=== PATIENT | male | born 1965 | race Caucasian/White ===

== ENCOUNTER 2019-03-22 10:53 | Emergency (ER) | payer MEDICAID, OTHER ==
[~2019-03-22] VITALS: Ht 187 cm; Wt 118.0 kg
[2019-03-22] MEDS ORDERED: TETANUS,DIPTH,PERTUSS P/F (BOOSTRIX) 0.5 ML VIAL IM ONE (11:30)
--- NOTE | 2019-03-22 11:38 | Diagnostic Imaging Report ---
INDICATION: Hit in nose with a cattle gate. TIME OF EXAM: 11:08 AM Multiple views of nasal bones were obtained. There is minimally displaced fracture involving the bilateral nasal bones. Right nasal bone does show slightly more inferior displacement. No other abnormalities are seen. IMPRESSION: Nasal bone fractures. Dictated by: Dictated on workstation # [id number]
--- NOTE | 2019-03-22 11:42 | ED EENT ---
History of Present Illness General Chief Complaint: Laceration Stated Complaint: NASAL INJ Nursing Triage Note: PT WAS HIT IN THE NOSE WITH A CATTLE GATE AFTER A COW KICKED THE GATE. NO LOSS OF CONSCIOUSNESS. PT HAS A U SHAPED LACERATION ON THE BRIDGE OF HIS NOSE. WELL APPROXIMATED AND BLEEDING IS CONTROLLED. PT IS NOT UP TO DATE ON HIS TETANUS. Source: patient, RN notes reviewed Exam Limitations: no limitations History of Present Illness Date Seen by Provider: Mar 22, 2019 Time Seen by Provider: 11:15 Initial Comments Patient was hit on the nose with a cattle gate after a cow kicked the gate. Patient does not have any loss of consciousness. Patient has a U-shaped laceration on the bridge of his nose and it is well approximated and bleeding is controlled and he is not up-to-date on tetanus. He does have mild nosebleed from the left nostril which was stopped by the time he came to the emergency room. He denies having any headache and denies having any loss of consciousness. He denies having any neck pain. He denies having any tenderness on the orbits, maxilla or on the forehead. He denies any other injuries. Location Injury Occurred: nasal bridge Timing/Duration: abrupt Severity: mild Prearrival Treatment: no prearrival treatment Associated Symptoms: facial pain/swelling Allergies and Home Medications Allergies Coded Allergies: No Known Drug Allergies (Unverified , 03/22/19) Review of Systems Review of Systems Constitutional: see HPI Eyes: No Symptoms Reported Ears: No Symptoms Reported Nose: epistaxis, pain (on nasal bridge) Mouth: no symptoms reported Throat: no symptoms reported Respiratory: no symptoms reported Cardiovascular: no symptoms reported Musculoskeletal: no symptoms reported Skin: other (lacaeration on nasal bridge) Neurological: Denies Headache, Denies Paresthesia, Denies Tingling Past Dgfnivm-Ayeyjb-Ibqjdm Hx Patient Social History Alcohol Use: Occasionally Uses Recreational Drug Use: No Smoking Status: Never a Smoker 2nd Hand Smoke Exposure: No Recent Foreign Travel: No Contact w/Someone Who Travel: No Recent Infectious Disease Expo: No Recent Hopitalizations: No Physical Abuse: No Sexual Abuse: No Mistreated: No Fear: No Seasonal Allergies Seasonal Allergies: No Past Medical History Surgeries: Yes (HERNIA SURGERY) Respiratory: No Cardiac: No Neurological: No Genitourinary: No Gastrointestinal: No Musculoskeletal: No Endocrine: No HEENT: No Cancer: No Psychosocial: No Integumentary: No Blood Disorders: No Physical Exam Vital Signs Vital Signs - First Documented 03/22/19 11:07 Temp 37.1 Pulse 104 Resp 18 B/P (MAP) 169/98 (121) O2 Delivery Room Air Height, Weight, BMI Height: '" Weight: lbs. oz. kg; 33.00 BMI Method: General Appearance: WD/WN, mild distress Eyes: right eye normal inspection, right eye PERRL, right eye EOMI; bilateral eye normal inspection, bilateral eye PERRL, bilateral eye EOMI Ears: bilateral ear auricle normal, bilateral ear canal normal, bilateral ear TM normal Nose: normal inspection, dried blood, other (laceration and tenderness on nasal bridge) Mouth/Throat: normal mouth inspection, pharynx normal; No dental tenderness Neck: non-tender, full range of motion, supple Cardiovascular: normal peripheral pulses, regular rate, rhythm Respiratory: chest non-tender, lungs clear, normal breath sounds, no respiratory distress Gastrointestinal: normal bowel sounds, non tender, soft, no organomegaly Neurologic/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, no motor/sensory deficits, alert, normal mood/affect, oriented x 3 Skin: normal color, warm/dry Procedures/Interventions Wound's Depth, Shape: superficial, flap Wound Explored: clean Other Closure Supply: Steri Strip 1/2", Wound Adhesive Progress/Results/Core Measures Results/Orders My Orders Orders - SUZIE MASON MD Nasal Bones (03/22/19 11:21) Dipht,Pertuss(Acell),Tet Adult (Boostrix (03/22/19 11:30) Medications Given in ED Current Medications Medications Dose Ordered Sig/Mark Route Start Time Stop Time Status Last Admin Dose Admin Diphtheria/ Tetanus/Acell Pertussis 0.5 ml ONCE ONCE IM 03/22/19 11:30 03/22/19 11:31 DC 03/22/19 11:35 0.5 ML Vital Signs/I&O 03/22/19 11:07 Temp 37.1 Pulse 104 Resp 18 B/P (MAP) 169/98 (121) O2 Delivery Room Air Blood Pressure Mean: 121 Diagnostic Imaging Diagonstic Imaging: Xray (nasal bone fracture) Departure Impression Primary Impression: Open nasal fracture Qualified Codes: S02.2XXB - Fracture of nasal bones, initial encounter for open fracture Disposition: HOME, SELF-CARE Condition: Stable Departure-Patient Inst. Decision time for Depature: 11:56 Referrals: HIWOT MARTINEZ APRN Patient Instructions: Nose Fracture, Laceration Repair With Glue (DC) Add. Discharge Instructions: Follow-up with the ENT in the 5-7 days. Call office tomorrow for appointment. Ice to the area of pain and swelling. Can take Tylenol 1 g he will every 6 hours when necessary pain. Take antibiotics as prescribed. Return to the emergency room if symptoms worsens or has any concern. All discharge instructions reviewed with patient and family. Voiced understanding. Scripts Cephalexin (Keflex) 500 Mg Capsule 500 MG PO TID for 7 Days, CAP Prov: SUZIE MASON MD 03/22/19 SUZIE MASON MD Mar 22, 2019 11:42
[2019-03-22] MEDS ORDERED: CEPH-507 PO (12:00)
[2019-03-22 12:18] VITALS: BP 133/80
== END 2019-03-22 12:13 | disposition home or self-care (01) ==
LOC: EDUNIT# 10:53 → ER FS 10:55
DX: S02.2XXB Fracture of nasal bones, initial encounter for open fracture (principal); Z23 Encounter for immunization; W22.8XXA Striking against or struck by other objects, initial encounter
CPT/HCPCS: 12011; 70160; 90471; 90715

== ENCOUNTER 2021-09-12 13:16 | Observation (INO) | payer MEDICAID ==
[~2021-09-12] VITALS: Ht 188 cm; Wt 119.5 kg
[~2021-09-12 13:16] MED LIST: CEPH-507 PO
[2021-09-12] MEDS ORDERED: diphenhydrAMINE 50 MG/ML INJ (BENADRYL) IVP PRN (14:30)
[2021-09-12] MEDS ORDERED: ANTACID SUSP 30 ML UDC (MYLANTA) PO PRN (14:30)
[2021-09-12] MEDS ORDERED: ONDANSETRON 4 MG/2 ML (SDV) Z0FRAN IV PRN (14:30)
[2021-09-12] MEDS ORDERED: polyethylene glycoL POWDER 17 GM (MIRALAX) PACK PO PRN (14:30)
[2021-09-12] MEDS ORDERED: ONDANSETRON 4 MG (ZOFRAN) ORAL DISSOLVE TAB PO PRN (14:30)
[2021-09-12] MEDS ORDERED: LORazepam 0.5 MG (ATIVAN) TABLET PO PRN (14:30)
[2021-09-12] MEDS ORDERED: MELATONIN 3 MG TABLET PO PRN (14:30)
[2021-09-12] MEDS ORDERED: BISACODYL 10 MG SUPP (DULCOLAX) PR PRN (14:30)
[2021-09-12] MEDS ORDERED: ACETAMINOPHEN 325 MG TABLET PO PRN (14:30)
[2021-09-12] MEDS ORDERED: morphine INJ 4 MG/ML 1 ML (VIAL/SYRINGE) IV PRN (14:30)
[2021-09-12] MEDS ORDERED: diphenhydrAMINE 25 MG TAB (BENADRYL) PO PRN (14:30)
[2021-09-12 15:02] LABS: BASOPHILS # (AUTO) 0.1 10^3/uL (0.0-0.1); BASOPHILS % (AUTO) 1 % (0-10); EOSINOPHILS # (AUTO) 0.4 10^3/uL (0.0-0.3); EOSINOPHILS % (AUTO) 5 % (0-10); HEMATOCRIT 47 % (40-54); HEMOGLOBIN 16.1 g/dL (13.3-17.7); LYMPHOCYTES # (AUTO) 1.1 10^3/uL (1.0-4.0); LYMPHOCYTES % (AUTO) 15 % (12-44); MEAN CORPUSCULAR HEMOGLOBIN 34 pg (25-34); MEAN CORPUSCULAR HGB CONC 34 g/dL (32-36); MEAN CORPUSCULAR VOLUME 100 fL (80-99); MEAN PLATELET VOLUME 9.2 fL (9.0-12.2); MONOCYTES # (AUTO) 0.7 10^3/uL (0.0-1.0); MONOCYTES % (AUTO) 10 % (0-12); NEUTROPHILS # (AUTO) 4.8 10^3/uL (1.8-7.8); NEUTROPHILS % (AUTO) 69 % (42-75); PLATELET COUNT 183 10^3/uL (130-400)
[2021-09-12 15:08] LABS: ALBUMIN 3.9 GM/DL (3.2-4.5); POTASSIUM 3.8 MMOL/L (3.6-5.0)
[2021-09-12 15:09] LABS: CALCIUM 8.8 MG/DL (8.5-10.1)
[2021-09-12 15:11] LABS: PROTHROMBIN TIME PATIENT 13.6 SEC (12.2-14.7); TOTAL PROTEIN 6.8 GM/DL (6.4-8.2)
[2021-09-12 15:14] LABS: CREATININE SERUM 0.99 MG/DL (0.60-1.30)
[2021-09-12 15:27] VITALS: BP 130/82
[2021-09-12 16:00] VITALS: BP 130/82
[2021-09-12] MEDS: HEParin DRIP 25000 UNIT/500ML 500 ML IV SCH (16:04)
[2021-09-12] MEDS: HEParin 1000 UNIT/ML (10ML VIAL) FOR BOLUS IV SCH ×2 (16:05→20:36)
[2021-09-12] MEDS ORDERED: RT-ALBUTEROL SULF 2.5 MG/3 ML PRE-MIX VIAL INH PRN (16:15)
--- NOTE | 2021-09-12 16:53 | History & Physical-Hospitalist ---
History of Present Illness HPI/Chief Complaint CC: Left leg DVT with extensive clot burden HPI: This is a 56yoWM w/known FOSTER non-compliant with CPAP who presented to his PCP in [place] and was found to have a left leg DVT with extensive clot burden. Due to the clot burden it was decided to admit on heparin drip for 36 hours then transition to OAC. Left leg has pain but he is doing better since starting heparin drip. No h/o DVT's and no FH of DVT's. No recent travel or any other common causes. Source: patient, family Exam Limitations: no limitations Date Seen 09/12/21 Time Seen by a Provider: 16:50 Attending Physician No,Local Physician PCP Admitting Physician: Aida Knox DO Attending Physician: Aida Knox DO Referring Physician Date of Admission Sep 12, 2021 at 13:49 Home Medications & Allergies Home Medications Reviewed patient Home Medication Reconciliation performed by pharmacy medication reconciliations topography technician and/or nursing. Patients Allergies have been reviewed. Allergies Allergies Coded Allergies No Known Drug Allergies (Hbvzdjusym83/23/19) Past Wflsbjz-Kghfko-Cbvjyd Hx Patient Social History Marrital Status: single Employed/Student: employed ([employer]) Tobacco Use?: No Smoking Status: Never a Smoker Use of E-Cig and/or Vaping dev: No Substance use?: No Alcohol Use?: Yes Alcohol type: Beer Alcohol Frequency: Once in a while Pt feels they are or have been: No Immunizations Up To Date First/Initial COVID19 Vaccinat: Second COVID19 Vaccination Fabián: Tetanus Booster (TDap): More Than 5 Years Hepatitis A: No Hepatitis B: No Seasonal Allergies Seasonal Allergies: No Current Status Advance Directives: No Communicates: Verbally Primary Language: [place]alander Preferred Spoken Language: [place]alander Is interpretation needed?: No Implanted or Applied Medical D: None Past Medical History Blood Disorders: No Review of Systems Constitutional: see HPI EENTM: no symptoms reported Respiratory: no symptoms reported Cardiovascular: no symptoms reported Gastrointestinal: no symptoms reported Genitourinary: no symptoms reported Musculoskeletal: muscle pain Skin: no symptoms reported Psychiatric/Neurological: No Symptoms Reported All Other Systems Reviewed Negative Unless Noted: Yes Physical Exam Physical Exam Vital Signs Vital Signs - First Documented 09/12/21 09/12/21 09/12/21 13:55 15:27 16:00 Temp 36.9 Pulse 92 Resp 16 B/P (MAP) 130/82 (98) Pulse Ox 98 O2 Delivery Room Air FiO2 21 Capillary Refill : Height, Weight, BMI Height: '" Weight: lbs. oz. kg; 33.81 BMI Method: General Appearance: No Apparent Distress, Chronically ill, Obese Eyes: Right Eye Normal Inspection, Right Eye PERRL HEENT: PERRL/EOMI, Normal ENT Inspection, Pharynx Normal, Moist Mucous Membranes Neck: Full Range of Motion, Normal Inspection, Non Tender Respiratory: Chest Non Tender, Lungs Clear, Normal Breath Sounds, No Accessory Muscle Use, No Respiratory Distress Cardiovascular: Regular Rate, Rhythm, No Edema, No Gallop, No JVD, No Murmur, Normal Peripheral Pulses Gastrointestinal: Normal Bowel Sounds, No Organomegaly, No Pulsatile Mass, Non Tender, Soft Back: Normal Inspection, No CVA Tenderness, No Vertebral Tenderness Extremity: Normal Capillary Refill, Normal Inspection, Normal Range of Motion, Non Tender, No Calf Tenderness, No Pedal Edema Neurologic/Psychiatric: Alert, Oriented x3, No Motor/Sensory Deficits, Normal Mood/Affect Skin: Normal Color, Warm/Dry Lymphatic: No Adenopathy Results Results/Procedures Labs Laboratory Tests 09/12/21 14:55 Patient resulted labs reviewed. Assessment/Plan Admission Diagnosis Assessment: Left leg DVT unprovoked with extensive clot burden FOSTER non-compliant with CPAP ETOH user Plan: Hep gtts Monitor labs Pain control Admission Status: Observation Diagnosis/Problems Diagnosis/Problems (1) Left leg DVT AIDA KNOX DO Sep 12, 2021 16:53
[2021-09-12] MEDS: DOCUSATE SODIUM 100 MG (COLACE) CAP PO SCH (19:24)
[2021-09-12 19:33] VITALS: BP 125/79
[2021-09-12 23:35] VITALS: BP 119/70
[2021-09-13 04:35] VITALS: BP 110/68
--- NOTE | 2021-09-13 05:43 | Progress Note - Hospitalist ---
Subjective HPI/CC On Admission Date Seen by Provider: Sep 13, 2021 Time Seen by Provider: 11:00 CC: Left leg DVT with extensive clot burden HPI: This is a 56yoWM w/known FOSTER non-compliant with CPAP who presented to his PCP in [place] and was found to have a left leg DVT with extensive clot burden. Due to the clot burden it was decided to admit on heparin drip for 36 hours then transition to OAC. Left leg has pain but he is doing better since starting heparin drip. No h/o DVT's and no FH of DVT's. No recent travel or any other common causes. Subjective/Events-last exam Pt is doing a lot better Left leg much smaller now Heparin drip maintained Will convert over to Xarelto Social work will provide a coupon and discharge tomorrow Multivitamin will be given due to macrocytosis due to alcoholism No alcohol withdrawal Review of Systems General: Fatigue, Malaise Musculoskeletal: leg pain Objective Exam Vital Signs Vital Signs Date Time Temp Pulse Resp B/P (MAP) Pulse Ox O2 Delivery O2 Flow Rate FiO2 09/14/21 04:00 36.9 71 16 118/71 (87) 95 Room Air 09/12/21 16:00 21 Capillary Refill : General Appearance: No Apparent Distress, WD/WN, Chronically ill, Obese Respiratory: Lungs Clear, Normal Breath Sounds Cardiovascular: Regular Rate, Rhythm Extremity: Pedal Edema, Swelling Neurologic/Psychiatric: Alert, Oriented x3, No Motor/Sensory Deficits, Normal Mood/Affect Results/Procedures Lab Patient resulted labs reviewed. Assessment/Plan Assessment and Plan Assess & Plan/Chief Complaint Assessment: Left leg DVT unprovoked with extensive clot burden FOSTER non-compliant with CPAP ETOH user Plan: Hep gtts Monitor labs Pain control 09/13: Hep gtts Xarelto tomorrow Diagnosis/Problems Diagnosis/Problems (1) Left leg DVT EDER RAJPUT DO Sep 13, 2021 05:43
[2021-09-13 05:57] LABS: BASOPHILS # (AUTO) 0.1 10^3/uL (0.0-0.1); BASOPHILS % (AUTO) 1 % (0-10); EOSINOPHILS # (AUTO) 0.5 10^3/uL (0.0-0.3); EOSINOPHILS % (AUTO) 7 % (0-10); HEMATOCRIT 47 % (40-54); HEMOGLOBIN 16.2 g/dL (13.3-17.7); LYMPHOCYTES # (AUTO) 1.4 10^3/uL (1.0-4.0); LYMPHOCYTES % (AUTO) 21 % (12-44); MEAN CORPUSCULAR HEMOGLOBIN 35 pg (25-34); MEAN CORPUSCULAR HGB CONC 35 g/dL (32-36); MEAN CORPUSCULAR VOLUME 100 fL (80-99); MEAN PLATELET VOLUME 8.8 fL (9.0-12.2); MONOCYTES # (AUTO) 0.6 10^3/uL (0.0-1.0); MONOCYTES % (AUTO) 8 % (0-12); NEUTROPHILS # (AUTO) 4.2 10^3/uL (1.8-7.8); NEUTROPHILS % (AUTO) 63 % (42-75); PLATELET COUNT 169 10^3/uL (130-400); WHITE BLOOD COUNT 6.8 10^3/uL (4.3-11.0)
[2021-09-13 06:08] LABS: ALBUMIN 3.7 GM/DL (3.2-4.5)
[2021-09-13 06:09] LABS: POTASSIUM 3.8 MMOL/L (3.6-5.0)
[2021-09-13 06:10] LABS: CALCIUM 8.5 MG/DL (8.5-10.1)
[2021-09-13 06:11] LABS: TOTAL PROTEIN 6.4 GM/DL (6.4-8.2)
[2021-09-13 06:15] LABS: CREATININE SERUM 0.96 MG/DL (0.60-1.30)
[2021-09-13] MEDS: HEParin DRIP 25000 UNIT/500ML 500 ML IV SCH ×2 (06:34→19:36)
[2021-09-13] MEDS: DOCUSATE SODIUM 100 MG (COLACE) CAP PO SCH ×2 (07:45→21:54)
[2021-09-13 07:52] VITALS: BP 117/71
[2021-09-13] MEDS: HEParin 1000 UNIT/ML (10ML VIAL) FOR BOLUS IV SCH ×2 (08:13→19:28)
[2021-09-13 11:24] VITALS: BP 138/79
[2021-09-13] MEDS: MULTIVIT W/MINERALS TAB (THERAGRAN M) PO SCH (13:07)
[2021-09-13 15:34] VITALS: BP 113/69
[2021-09-13 19:52] VITALS: BP 142/81
[2021-09-13 23:20] VITALS: BP_SYST 142; BP_SYST 98; BP_DIAS 57; BP_DIAS 81
[2021-09-14 04:00] VITALS: BP 118/71
[2021-09-14] MEDS: MULTIVIT W/MINERALS TAB (THERAGRAN M) PO SCH (05:51)
[2021-09-14 06:16] LABS: ALBUMIN 3.8 GM/DL (3.2-4.5); POTASSIUM 4.1 MMOL/L (3.6-5.0)
[2021-09-14 06:18] LABS: CALCIUM 8.8 MG/DL (8.5-10.1)
[2021-09-14 06:19] LABS: TOTAL PROTEIN 6.8 GM/DL (6.4-8.2)
[2021-09-14 06:21] LABS: BILIRUBIN,TOTAL 0.9 MG/DL (0.1-1.0)
[2021-09-14 06:23] LABS: CREATININE SERUM 0.94 MG/DL (0.60-1.30)
[2021-09-14] MEDS: HEParin DRIP 25000 UNIT/500ML 500 ML IV SCH (06:46)
[2021-09-14 07:14] VITALS: BP 117/63
[2021-09-14] MEDS: DOCUSATE SODIUM 100 MG (COLACE) CAP PO SCH (08:24)
[2021-09-14] MEDS ORDERED: RIVA1TAB PO (11:04)
--- NOTE | 2021-09-14 11:06 | Discharge Summary ---
Discharge Summary Hospital Course Was the Problem List Reviewed?: Yes Problems/Dx: (1) Left leg DVT Qualifiers: Qualified Codes: I82.402 - Acute embolism and thrombosis of unspecified deep veins of left lower extremity Hospital Course Date of Admission: Sep 12, 2021 at 13:49 Admission Diagnosis : Family Physician/Provider: No,Local Physician Date of Discharge: 09/14/21 Discharge Diagnosis: left leg DVT with extensive clot burden requiring hep gtts for 36 hours prior to OAC Hospital Course: Pt had an uneventful hospital course after he was admitted, placed on Heparin drip due to Severe Left Lower Extremity DVT with clot burden. Heparin drip was discontinued and started on Xarelto 15mg BID, and starter pack send to [facility]. Labs and Pending Lab Test: Laboratory Tests 09/13/21 12:16: Activated Partial Thromboplast Time 85H 09/13/21 18:32: Activated Partial Thromboplast Time 64H 09/14/21 00:40: Activated Partial Thromboplast Time 89H 09/14/21 05:50: Activated Partial Thromboplast Time 84H, Sodium Level 138, Potassium Level 4.1, Chloride Level 107, Carbon Dioxide Level 21, Anion Gap 10, Blood Urea Nitrogen 9, Creatinine 0.94, Estimat Glomerular Filtration Rate 95, BUN/Creatinine Ratio 10, Glucose Level 106H, Calcium Level 8.8, Corrected Calcium 9.0, Total Bilirubin 0.9, Aspartate Amino Transf (AST/SGOT) 13, Alanine Aminotransferase (ALT/SGPT) 17, Alkaline Phosphatase 42, Total Protein 6.8, Albumin 3.8 Home Meds Active Xarelto Starter Pack (Rivaroxaban) 15 Mg (42)- 20 Mg (9) Tab.ds.pk 1 Each PO UD 15mg by mouth twice daily x 21 days then 20mg by mouth daily Assessment/Pt Instructions PCP 1 week Discharge Planning: <30 minutes discharge planning Discharge Instructions Discharge Diet: No Restrictions Discharge Physical Examination Vital Signs Vital Signs Date Time Temp Pulse Resp B/P (MAP) Pulse Ox O2 Delivery O2 Flow Rate FiO2 09/14/21 07:54 Room Air 09/14/21 07:14 36.6 85 20 117/63 (81) 92 09/12/21 16:00 21 General Appearance: No Apparent Distress, WD/WN, Chronically ill Allergies: Coded Allergies: No Known Drug Allergies (Unverified , 03/22/19) Discharge Summary Date of Admission Sep 12, 2021 at 13:49 Date of Discharge Discharge Date: Sep 14, 2021 Admission Diagnosis Assessment: Left leg DVT unprovoked with extensive clot burden FOSTER non-compliant with CPAP ETOH user Plan: Hep gtts Monitor labs Pain control Discharge Diagnosis Assessment: Left leg DVT unprovoked with extensive clot burden FOSTER non-compliant with CPAP ETOH user Plan: Hep gtts Monitor labs Pain control 09/13: Hep gtts Xarelto tomorrow (1) Left leg DVT Qualifiers: Qualified Codes: I82.402 - Acute embolism and thrombosis of unspecified deep veins of left lower extremity EDER RAJPUT DO Sep 14, 2021 11:06
[2021-09-14] MEDS ORDERED: RIVAROXABAN 15 MG TABLET (XARELTO) PO ONE (11:15)
[2021-09-14 11:18] VITALS: BP 101/57
[2021-09-14] MEDS ORDERED: RIVAROXABAN 15 MG TABLET (XARELTO) PO SCH (19:00)
[2021-10-05] MEDS ORDERED: RIVAROXABAN 20 MG TABLET (XARELTO) PO SCH (17:00)
== END 2021-09-14 11:04 | disposition home or self-care (01) ==
LOC: UNDOADMOB 13:49 → 4TH 13:49 → UNDODISOB 09-14 12:30
PROVIDERS: ADMIT Internal Medicine; ATTEND Internal Medicine
DX: I82.402 Acute embolism and thrombosis of unspecified deep veins of left lower extremity (principal); G47.33 Obstructive sleep apnea (adult) (pediatric); F10.10 Alcohol abuse, uncomplicated
CPT/HCPCS: 36415; 80053; 84443; 85025; 85610; 85730; 96365; 96366; 96376; G0378